=== PATIENT | female | born 1995 | race Caucasian/White ===

== ENCOUNTER 2019-05-03 01:17 | Emergency (ER) | payer OTHER ==
--- NOTE | 2019-05-03 01:37 | ED ---
Substance Abuse/Use - HPI Summary HPI Summary: This pt is a 23 Y/O F brought into [facility] by police due to alcohol intoxication after drinking [place] per EMS. She is a level 5 caveat due to her level of intoxication and inability to communicate. - History Of Current Complaint Chief Complaint: EDSubstanceAbuse Stated Complaint: ETOH PER EMS Time Seen by Provider: 05/03/19 01:21 Hx Obtained From: EMS Hx From Patient Unobtainable Due To: Altered Mental Status - Level 5 caveat PMH/Surg Hx/FS Hx/Imm Hx Previously Healthy: Yes Sensory History: Denies: Hx Contacts or Glasses Opthamlomology History: Denies: Hx Contacts or Glasses EENT History: Denies: Hx Hearing Aid - Surgical History Surgical History: Unable to Obtain/Confirm - Immunization History Immunizations Up to Date: Unable to Obtain/Confirm Infectious Disease History: No Infectious Disease History: Denies: Traveled Outside the [place] in Last 30 Days - Family History Known Family History: Positive: Unknown - PT IS A LEVEL 5 CAVEAT DUE TO HER LEVEL OF INTOXICATION - Social History Occupation: Student - [employer] Lives: Dormitory/Roommates Alcohol Use: Occasionally Substance Use Comment - Amount & Last Used: UNKNOWN DUE TO HER BEING A LEVEL 5 CAVEAT Amount Used/How Often: UNKNOWN DUE TO HER BEING A LEVEL 5 CAVEAT - Additional Comments History Additional Comments: THIS PT IS A LEVEL 5 CAVEAT DUE TO HER LEVEL OF ALCOHOL INTOXICATION. Review of Systems - ROS Summary Review of Systems Summary: A FULL ROS IS UNOBTAINABLE DUE TO THE PT BEING A LEVEL 5 CAVEAT DUE TO HER LEVEL OF INTOXICATION Positive: Vomiting, Nausea All Other Systems Reviewed And Are Negative: No Physical Exam - Summary Physical Exam Summary: Appearance: Well-appearing, Well-nourished, lying in bed comfortably Skin: Warm, dry, no obvious rash Eyes: sclera anicteric, no conjunctival pallor ENT: mucous membranes moist, pharynx appears normal Neck: Supple, nontender Respiratory: Clear to auscultation, no signs of respiratory distress Cardiovascular: Normal S1, S2. No murmurs. Normal distal pulses in tibial and radial bilaterally. Abdomen: Soft, nontender, normal active bowel sounds present Musculoskeletal: Normal, Strength/ROM Intact Neurological: A&Ox3, awake and alert, mentation is normal, speech is fluent and appropriate Psychiatric: affect is normal, does not appear anxious or depressed, responds to voice by briefly opening her eyes and mumbling Triage Information Reviewed: Yes Vital Signs On Initial Exam: Initial Vitals Temp Pulse Resp BP Pulse Ox 97.7 F 60 18 108/73 97 05/03/19 01:23 05/03/19 01:23 05/03/19 01:23 05/03/19 01:23 05/03/19 01:23 Vital Signs Reviewed: Yes Procedures - Sedation Patient Received Moderate/Deep Sedation with Procedure: No Diagnostics - Vital Signs Vital Signs Temp Pulse Resp BP Pulse Ox 05/03/19 01:23 97.7 F 60 18 108/73 97 - Laboratory Lab Statement: Any lab studies that have been ordered have been reviewed, and results considered in the medical decision making process. Course/Dx - Course Course Of Treatment: This pt is a 23 Y/O F brought into [facility] by police due to alcohol intoxication after drinking [place] per EMS. She is a level 5 caveat due to her level of intoxication and inability to communicate. Her PE found that she responds to voice only. SHE IS A LEVEL 5 CAVEAT DUE TO HER LEVEL OF INTOXICATION. This pt will be signed out to Dr. Joshi from Dr. Miller pending sobriety due to a Dx of acute alcohol intoxication. - Diagnoses Provider Diagnoses: Acute alcohol intoxication Discharge ED - Sign-Out/Discharge Documenting (check all that apply): Patient Departure - discharge , Sign-Out Patient Signing out patient TO: Raffaele Joshi - Discharge Plan Condition: Stable Disposition: HOME Patient Education Materials: Alcohol Intoxication (ED) Referrals: MARGO Wang [[email or web address], APPLICATION, OTHER] - 3 Days - Billing Disposition and Condition Condition: STABLE Disposition: Home - Attestation Statements Document Initiated by J Carlosibe: Yes Documenting Scribe: Enoch Mooney Provider For Whom Pamela is Documenting (Include Credential): Haider Miller MD Scribe Attestation: Enoch Sun, ivethed for Haider Miller MD on 05/03/19 at 1941. Scribe Documentation Reviewed: Yes Provider Attestation: The documentation as recorded by the Enoch guillen accurately reflects the service I personally performed and the decisions made by me, Haider Miller MD Status of Scribe Document: Viewed
[2019-05-03 02:14] LABS: HCG Pregnancy < 0.60 mIU/mL
[2019-05-03 02:35] LABS: Alcohol 274 mg/dL (<10)
[2019-05-03] MEDS ORDERED: Ondansetron INJ* 2 MG/ML VIAL IV ONE (03:21)
--- NOTE | 2019-05-03 07:31 | ED ---
Progress - Progress Note Progress Note: This patient was signed out from Dr. Miller to Dr. Joshi at 0700 on 05/03/19, pending disposition, awaiting sobriety. Pt is sober. The patients condition is stable and will be discharged to home with Dx of alcohol intoxication. Course/Dx - Course Course Of Treatment: This patient was signed out from Dr. Miller to Dr. Joshi at 0700 on 05/03/19, pending disposition, awaiting sobriety. Pt is sober and awake. The patients condition is stable and will be discharged to home with Dx of alcohol intoxication. At 9 AM the patient is alert and oriented 3. The patient is sober. The patient is ambulating with good steady walk. The patient is eating and drinking without any nausea and vomiting. Therefore the patient will be discharged home with follow-up with primary care physician. - Diagnoses Provider Diagnoses: Acute alcohol intoxication Discharge ED - Sign-Out/Discharge Documenting (check all that apply): Patient Departure - Discharge - Discharge Plan Condition: Stable Disposition: HOME Patient Education Materials: Alcohol Intoxication (ED) Referrals: MARGO Wang [[email or web address], APPLICATION, OTHER] - 3 Days - Billing Disposition and Condition Condition: STABLE Disposition: Home - Attestation Statements Document Initiated by Scribe: Yes Documenting Scribe: Noy Leavitt Provider For Whom Pamela is Documenting (Include Credential): Raffaele Joshi MD Scribe Attestation: Noy Sun scribed for Raffaele Joshi MD on 05/03/19 at 1103. Scribe Documentation Reviewed: Yes Provider Attestation: The documentation as recorded by the Noy guillen accurately reflects the service I personally performed and the decisions made by Raffaele haynes MD Status of Scribe Document: Viewed
[2019-05-03 08:05] VITALS: BP 122/78
== END 2019-05-03 09:07 | disposition home or self-care (01) ==
LOC: ED 01:17
DX: F10.129 Alcohol abuse with intoxication, unspecified (principal); R11.2 Nausea with vomiting, unspecified
CPT/HCPCS: 36415; 80320; 84702; 96374; 99284; G0480; J2405